=== PATIENT | female | born 1930 | race Caucasian/White ===

== ENCOUNTER 2018-12-20 14:06 | Emergency (ER) | payer MEDICARE ==
[~2018-12-20] VITALS: Ht 160 cm; Wt 68.3 kg
[~2018-12-20 14:06] MED LIST: ACET-890 PO; ASPI-1265 PO; ATOR20TA PO; CALC-1197 PO; CHOL2000 PO; GABA-532 PO; LOSA50TA64 PO; ZOLE5INF7 IV
[2018-12-20 15:44] VITALS: BP 174/86
== END 2018-12-20 15:48 | disposition home or self-care (01) ==
LOC: ER 14:06
DX: S00.03XA Contusion of scalp, initial encounter (principal); Z79.82 Long term (current) use of aspirin; Z79.899 Other long term (current) drug therapy; W01.0XXA Fall on same level from slipping, tripping and stumbling without subsequent striking against object, initial encounter; Y93.01 Activity, walking, marching and hiking; Y92.89 Other specified places as the place of occurrence of the external cause; Y99.8 Other external cause status
CPT/HCPCS: 70450; 99284